=== PATIENT | female | born 1940 | race Caucasian/White ===

== ENCOUNTER → 2021-03-10 | Day surgery (SDC) | payer MEDICARE, BC ==
[~2021-03-10] MED LIST: AMLO-186 PO; ASPI-630 PO; BUPIVACAINE MPF 0.25% 10 ML VIAL. ONE; FENO160T PO; HYDR-2145 PO; IOHEXOL 300 MG/ML 50 ML VIAL. ONE; LIDOCAINE 1% PF 30 ML VIAL. ONE; MELO7.5T29 PO; METO50TA4 PO; OMEP20CA16 PO; QUIN40TA16 PO; centrum; methylPREDNISolone ACETATE 40 MG/ML VIAL. ONE; vitamin D
[2021-03-10 10:45] VITALS: BP 149/78
== END | disposition home or self-care (01) ==
LOC: SURG 09:53
PROVIDERS: ATTEND Anesthesiology
DX: M25.551 Pain in right hip (principal); M16.11 Unilateral primary osteoarthritis, right hip; G89.29 Other chronic pain; I10 Essential (primary) hypertension; K21.9 Gastro-esophageal reflux disease without esophagitis; M19.90 Unspecified osteoarthritis, unspecified site; M46.1 Sacroiliitis, not elsewhere classified; Z98.890 Other specified postprocedural states; Z79.899 Other long term (current) drug therapy; Z90.49 Acquired absence of other specified parts of digestive tract; Z85.828 Personal history of other malignant neoplasm of skin
CPT/HCPCS: 20610; J1030; J3490; Q9967

== ENCOUNTER → 2021-04-06 | Day surgery (SDC) | payer MEDICARE, BC ==
[~2021-04-06] MED LIST changes: -IOHEXOL 300 MG/ML 50 ML VIAL. ONE
[2021-04-06 11:31] VITALS: BP 185/84
== END | disposition home or self-care (01) ==
LOC: SURG 11:05
PROVIDERS: ATTEND Anesthesiology
DX: M17.11 Unilateral primary osteoarthritis, right knee (principal); Z79.82 Long term (current) use of aspirin; Z79.899 Other long term (current) drug therapy
CPT/HCPCS: 20610; 77002; J1030; J3490

== ENCOUNTER → 2021-05-04 | Day surgery (SDC) | payer MEDICARE, BC ==
[~2021-05-04] MED LIST changes: -BUPIVACAINE MPF 0.25% 10 ML VIAL. ONE; -LIDOCAINE 1% PF 30 ML VIAL. ONE; -methylPREDNISolone ACETATE 40 MG/ML VIAL. ONE
[2021-05-04 10:12] VITALS: BP 183/97
== END | disposition home or self-care (01) ==
LOC: SURG 10:01
PROVIDERS: ATTEND Anesthesiology
DX: M25.551 Pain in right hip (principal); M25.561 Pain in right knee; G89.29 Other chronic pain; M17.11 Unilateral primary osteoarthritis, right knee; M16.11 Unilateral primary osteoarthritis, right hip; M46.1 Sacroiliitis, not elsewhere classified; I10 Essential (primary) hypertension; M19.90 Unspecified osteoarthritis, unspecified site; K21.9 Gastro-esophageal reflux disease without esophagitis; Z98.890 Other specified postprocedural states; Z79.899 Other long term (current) drug therapy; Z85.828 Personal history of other malignant neoplasm of skin; Z90.710 Acquired absence of both cervix and uterus; Z90.49 Acquired absence of other specified parts of digestive tract
CPT/HCPCS: 99214; G0463

== ENCOUNTER → 2021-06-02 | Outpatient (CLI) | payer MEDICARE, BC ==
[2021-05-04 10:12] VITALS: BP 183/97
--- NOTE | 2021-06-02 12:17 | RAD ---
EXAM: Right knee, 3 views. HISTORY: Pain. Unable to bear weight. COMPARISON: None. FINDINGS: 3 views of the right knee are obtained. There is tricompartmental joint space narrowing wit h degenerative subchondral sclerosis and marginal spurring. There is medial and lateral compartment c hondrocalcinosis. There is no significant joint effusion. 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 No convincing acute osseous finding. Electronically signed by: Pamella Cota MD (06/02/2021 12:14 PM) [id number]
--- NOTE | 2021-06-02 12:19 | RAD ---
EXAM: Right hip, 2 views. HISTORY: Chronic pain. Unable to bear weight. COMPARISON: None. FINDINGS: 2 views the right hip are obtained. There is complete loss of the right hip joint space and associated acetabulum protrusio. There is chronic appearing bony remodeling and fragmentation of the medial acetabular wall. There is subchondral sclerosis and marginal spurring involving the acetabulu m and femoral head. 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 Electronically signed by: Pamella Cota MD (06/02/2021 12:16 PM) [id number]
--- NOTE | 2021-06-02 13:52 | RAD ---
EXAM: Lumbar spine CT without contrast. HISTORY: Lower back pain. Right lower extremity pain and numbness. TECHNIQUE: Computed tomographic images of the lumbar spine were obtained without contrast. Multiplana r reformatting was performed. *One or more of the following individualized dose reduction techniques were utilized for this examina tion: 1. Automated exposure control. 2. Adjustment of the mA and/or kV according to patient size. 3. Use of iterative reconstruction technique. COMPARISON: None. FINDINGS: There is a mild to moderate acute L4 compression fracture with approximately one half decre ase in anterior vertebral body height. There is 3 mm retropulsion of the posterior superior cortex in to the central canal, contributing to marked severe central canal stenosis. No additional fracture is seen. There is minimal anterolisthesis of L3 on L4, L4 and L5 and L5 on S1. There is multilevel endplate re modeling. There is multilevel facet arthropathy. There is bone demineralization. There are multiple simple appearing renal cysts, largest which is partially excluded for the field-of -view on the right measuring 5.1 cm. There is a suspected partially exophytic lesion along the latera l mid zone of the left kidney with attenuation greater than fluid. There is a 3 mm suspected hemorrha gic cyst within the lower pole of the left kidney. There is degenerative subchondral sclerosis, spurring and vacuum phenomenon involving the sacroiliac joints. At L1-L2, there is a disc bulge. There is mild right greater than left facet arthropathy. There is no stenosis. At L2-L3, there is a disc bulge. There is [id number] right greater than left facet arthropathy. There is mild central canal stenosis. At L3-L4, there is a broad-based posterior central disc protrusion with superior extrusion superimpos ed on a disc bulge and endplate osteophytosis. There is severe bilateral facet arthropathy. There is hypertrophy of the ligamentum flavum. There is retropulsion of the L4 cortex. There is grade 1 mar[place]osa listhesis. There is mild right and moderate left foraminal stenosis. There is moderate to severe cent ral canal stenosis. At L4-L5, there is a disc bulge and endplate remodeling. There is severe bilateral facet arthropathy. There is hypertrophy of the ligament of flavum. There is grade 1 anterolisthesis. There is mild bila teral foraminal stenosis. There is moderate to severe central canal stenosis. At L5-S1, there is a disc bulge and endplate remodeling. There is moderate to severe lateral facet ar thropathy. There is grade 1 anterolisthesis. There is no stenosis. IMPRESSION: 1. Acute mild to moderate compression fracture of L4 with slight retropulsion of the cortex contribut ing to moderate to severe central canal stenosis. 2. Degenerative change throughout the lumbar spine, described in detail above. This results in signif icant foraminal and central canal stenosis at the aforementioned levels. 3. Bone demineralization. 4. Mild multilevel listhesis. 5. Multiple renal cysts. There is also a 2.9 cm lesion along the lateral left kidney with attenuation greater than fluid. This may be a complicated cyst or solid lesion. Renal sonography or a renal prot ocol CT or MRI can be performed for catheterization. There is a tiny hemorrhagic cyst within the lowe r pole the right kidney. Electronically signed by: Pamella Cota MD (06/02/2021 1:49 PM) [id number]
== END ==
LOC: CT 11:00
PROVIDERS: ATTEND Anesthesiology
DX: M48.56XA Collapsed vertebra, not elsewhere classified, lumbar region, initial encounter for fracture (principal); M47.816 Spondylosis without myelopathy or radiculopathy, lumbar region; M48.061 Spinal stenosis, lumbar region without neurogenic claudication; M43.17 Spondylolisthesis, lumbosacral region; M48.8X7 Other specified spondylopathies, lumbosacral region; M81.8 Other osteoporosis without current pathological fracture; N28.1 Cyst of kidney, acquired; M17.11 Unilateral primary osteoarthritis, right knee; M11.261 Other chondrocalcinosis, right knee; M76.891 Other specified enthesopathies of right lower limb, excluding foot; M16.11 Unilateral primary osteoarthritis, right hip; M25.551 Pain in right hip
CPT/HCPCS: 72131; 73502; 73562

== ENCOUNTER → 2021-06-22 | Outpatient (CLI) | payer MEDICARE, BC ==
[2021-05-04 10:12] VITALS: BP 183/97
--- NOTE | 2021-06-22 15:35 | RAD ---
Examination: Bilateral Lower Extremity Venous Doppler Ultrasound History: Bilateral lower extremity edema Comparison: None Procedure: Case scale, color flow 2D and spectal waveform analysis images are obtained with and witho ut compression in the area of the common femoral vein, superficial femoral vein - femoral vein juncti on, main femoral vein (superficial femoral vein) and popliteal vein. Veins of the proximal calf are a lso imaged. Findings: There is normal duplex flow, color flow and compressibility of all visualized vein segments. No evide nce of deep venous thrombus is present. Mild soft tissue edema bilateral lower legs. Impression: No evidence of DVT in the bilateral lower extremity venous system. Electronically signed by: Kole Mathews MD (06/22/2021 3:33 PM) [id number]
== END ==
LOC: US 14:47
PROVIDERS: ATTEND Internal Medicine
DX: R60.0 Localized edema (principal)
CPT/HCPCS: 93970